=== PATIENT | female | born 1955 | race African-American/Black ===

== ENCOUNTER 2024-02-22 15:26 | Emergency (ER) | payer MEDICARE, MEDICAID, SELFPAY ==
[2024-02-22 15:35] VITALS: BP 118/66; PULSE 64; RESP 16; TEMP 36.9; O2SAT 100
--- NOTE | 2024-02-22 16:05 | ED.URI ---
HPI - URI/Sore Throat General Chief Complaint: Upper Respiratory Infection Stated Complaint: Runny Nose/Cough Time Seen by Provider: 02/22/24 15:50 Source: patient, RN notes reviewed and old records reviewed Mode of arrival: ambulatory Limitations: no limitations History of Present Illness HPI Narrative: 68 year old female presents to express care with complaints of sinus congestion with drainage and productive cough for 5 day duration. Patient reports that she had a fever for 1 day but none since. Patient reports that she has some pressure to her right ear but denies any pain. She states that she is starting to feel better and did decline COVID test. Patient reports that she has been drinking hot tea with lemon for her symptoms. MD elicited complaint: cough, rhinorrhea and nasal congestion Onset (ago): day(s) (5) Pain scale (0-10): 0 Able to tolerate fluids by mouth: Yes Treatments prior to arrival: other (hot tea with lemon) Related Data Home Medications Medication Instructions Recorded Confirmed amlodipine 5 mg tablet mg 02/22/24 doxepin 50 mg capsule mg 02/22/24 losartan 25 mg tablet mg 02/22/24 nebivolol 10 mg tablet mg 02/22/24 potassium chloride 20 mEq meq PO 02/22/24 tablet,extended release(part/cryst) rosuvastatin 5 mg tablet mg 02/22/24 Allergies Allergy/AdvReac Type Severity Reaction Status Date / Time Penicillins Allergy Rash Verified 02/22/24 15:48 Review of Systems Review of Systems: CONSTITUTIONAL: Denies malaise, no recent chills, sweats, or fever. EYES: Denies visual changes, redness, or discharge. ENT: Reports rhinorrhea, congestion, sinus pain,right ear pressure denies otalgia and no sore throat. CARDIOVASCULAR: Denies chest pain, palpitations, or edema. RESPIRATORY: Reports cough.? Denies dyspnea. GASTROINTESTINAL: Denies abdominal pain, nausea, vomiting, diarrhea SKIN: Denies rash or itching. MUSCULOSKELETAL: Denies myalgia. NEUROLOGIC: Denies headache. All systems reviewed & are unremarkable except as noted in HPI and below [facility] Past Medical History Medical History (Updated 02/23/24 @ 14:36 by Kari Nguyen NP) Bronchitis Hyperlipidemia Hypertension Social History Social History (Updated 02/23/24 @ 14:32 by Kari Nguyen NP) Smoking status: Never smoker Alcohol intake: current Alcohol use details: rare social Substance use type: does not use Living arrangements: with family Gender identity (if verbalized by the patient): Female Comments At time of signature, agree with nursing past medical, surgical, social and family history. There is no relevant family history pertinent to the presenting complaint Exam Narrative: GENERAL: Well-appearing, well-nourished, and in no acute distress. HEAD: Normocephalic EYES: PERRLA, conjunctivae clear ENT: Nares clear, turbinates edematous and erythematous, clear discharge. Mucous membranes moist. TM pearly staton with dull light reflex bilaterally; no tragal tenderness. Oropharynx erythematous without lesions. Tonsils not enlarged and without exudate, no drooling, no hoarseness, no trismus, uvula midline.post nasal drainagep NECK: Supple. No lymphadenopathy CHEST: Clear to auscultation, breath sounds equal. No wheezing, rhonchi, rales, or stridor. No respiratory distress, speaks in full sentences.SAO2 100% no dyspnea or any tachypnea noted HEART: Regular rate and rhythm. No murmur heard. SKIN: Warm, dry, no rash. NEURO: Alert and oriented x3. PSYCH: Normal mood and affect Course Course Emergency Course: Patient is aware of diagnosis, understands and agrees to treatment plan.? Anticipatory guidance given.? Patient agrees to follow-up as directed and is aware of reasons to seek care at the emergency department. Portions of this record may have been created with voice recognition software Level of Care: Express Care Visit Vital Signs Vital signs: Vital Signs [place]
== END 2024-02-22 16:13 | disposition home or self-care (01) ==
PROVIDERS: Emergency Provider Registered Nurse; PCP Family Medicine
DX: R05.9 Cough, unspecified (principal); E78.5 Hyperlipidemia, unspecified; I10 Essential (primary) hypertension
CPT/HCPCS: 99213; G0463